=== PATIENT | male | born 1955 | race African-American/Black ===

== ENCOUNTER → 2016-08-17 | Outpatient (CLI) | payer BC ==
[~2016-08-17] MED LIST: DOXYCYCLINE 10100 MG PO; LANTUS SC; NORCO 5-325 TA1 EACH PO; NOVOLIN N100 UNIT/3 SQ
== END ==
LOC: ULTRA 09:21
DX: R31.0 Gross hematuria (principal)

== ENCOUNTER → 2018-09-06 | Outpatient (CLI) | payer OTHER | LOC: RAD 11:02 | DX: M54.5 Low back pain (principal); G89.29 Other chronic pain ==